=== PATIENT | female | born 1970 | race Caucasian/White ===

== ENCOUNTER → 2018-05-19 | Outpatient (CLI) | payer OTHER ==
--- NOTE | 2018-05-19 10:28 | RAD ---
Complete abdominal ultrasound History: Bloating, nausea. Comparison: None. Procedure: Transabdominal ultrasound images are obtained. Findings: Visualized pancreas is unremarkable. Liver is mildly increased in echogenicity in echogenicity. No focal hepatic masses are identified. Right lobe of the liver measures 14.6 cm. Gallbladder demonstrates presence of many stones. Common bile duct measures normally at 3 mm in diameter. Spleen is homogeneous and measures 8.5 cm in length. Right kidney is normal in size and configuration without hydronephrosis. Left kidney is normal in size and configuration without hydronephrosis. Visualized portions of the aorta and IVC have normal caliber. Impression: 1. Cholelithiasis without evidence of cholecystitis. 2. Mildly echogenic liver, compatible with fatty liver disease. Electronically signed by: Pa Lambert MD (05/19/2018 10:24 AM) [facility]
== END | disposition home or self-care (01) ==
LOC: US 08:16
PROVIDERS: ATTEND Internal Medicine Gastroenterology
DX: K76.0 Fatty (change of) liver, not elsewhere classified (principal)
CPT/HCPCS: 76700